=== PATIENT | female | born 1955 | race African-American/Black ===

== ENCOUNTER → 2021-04-20 | Outpatient (CLI) | payer OTHER, MEDICARE ==
--- NOTE | 2021-04-23 10:07 | PATH ---
[facility] [address] [place] [address] PATHOLOGY RPT PROCEDURE Name: MEI BROOKE Room #: REG MISTY Tsai.#: [id number] Admission: 04/20/21 Date of : 55 Discharge: Report #: [id number] Path Case #: [id number] [facility] Accession Number: [id number] . 01 Material submitted: . breast - LEFT BREAST CALIFICATIONS. Modifiers: left, medial . 01 Clinical history: . LEFT BREAST CALCIFICATIONS . 02 Diagnosis: Left breast calcifications, medial, stereotactic guided needle biopsies: - Calcium oxylate calcifications identified within apocrine metaplasia and apocrine cyst. - Negative for in situ carcinoma or malignancy. (ANK:linda; 04/22/2021) QMS 04/22/2021 1212 Local . 02 Comment: This case has been co-reviewed with Dr. Roque who agrees with my diagnosis on 04/22/2021. (ANK:linda; 04/22/2021) . 02 Electronically signed: . Sarita Hayden MD, Pathologist NPI- [id number] . 01 Gross description: . The specimen is received in formalin, labeled "Kristi Brooke, left". The source is additionally listed on the requisition as "left breast calcifications". Received are multiple needle cores of yellow fibrofatty tissue measuring 2.9 x 1.4 x 0.4 cm in aggregate dimensions. Also received is a plastic cassette containing 2 needle cores of yellow fibrofatty tissue measuring 1.6 x 1.2 x 0.4 cm in aggregate dimensions. The tissue in the cassette is transferred to cassette A1, and the remaining tissue is submitted entirely in cassettes A2-A4. The specimen is collected at 1205 and placed into formalin at 1207 on 04/20/2021. The specimen is removed from formalin at 2140 on 04/20/2021. The total formalin fixation time is 9 hours and 36 minutes. ([facility]; 04/20/2021) NRI/NRI 04/20/2021 1612 Local . 02 Pathologist provided ICD-10: N60.82, N60.02 . 02 CPT . [id number] [place] [address] PATHOLOGY RPT PROCEDURE Name: MEI BROOKE Roxi Room #: REG CLI Lois#: [id number] Admission: 04/20/21 Date of : 55 Discharge: Report #: [id number] Path Case #: [id number] Specimen Comment: A courtesy copy of this report has been sent to [phone] Specimen Comment: [phone], Specimen Comment: Report sent to , DR TOUSSAINT / DR STREETER Performed at: 01 [facility] [address], [place], [place] [id number] MD Miguel Doshi MD Phone: [phone] Performed at: [address] [facility] [address] [id number] MD Sarita Hayden MD Phone: [phone]
== END | disposition home or self-care (01) ==
LOC: BC 04-13 10:37
PROVIDERS: ATTEND Surgery
DX: R92.1 Mammographic calcification found on diagnostic imaging of breast (principal); N60.82 Other benign mammary dysplasias of left breast; N60.02 Solitary cyst of left breast